=== PATIENT | female | born 1945 | race Caucasian/White ===

== ENCOUNTER 2019-06-22 11:00 | Inpatient (IN) | payer OTHER ==
[~2019-06-22] VITALS: Ht 149.9 cm; Wt 115.7 kg
[~2019-06-22 11:00] MED LIST: ACTONEL150 MG PO; ATENOLOL25 MG PO; CALCIUM600 MG PO; EVISTA60 MG PO; FLUOCINONIDE15 GM; GABAPENTIN300 MG PO; KEPPRA500 MG PO; LISINOPRIL40 MG PO; METROCREAM45 GM TOP; MULTI-VITAMIN1 EACH PO; NEXIUM40 MG PO; OXYBUTYNIN CHLO15 MG PO; RETIN-A20 GM; SYNTHROID75 MCG PO; TRILEPTAL300 MG PO; ULTRAM50 MG PO; ZOCOR10 MG PO; ZOLOFT50 MG PO
--- OUTSIDE RECORDS SUMMARY | 2019-06-22 11:03 | XMS REPORT | Summary of Care ---
Author Author [facility] - Health Organization [facility] - Health Address Unknown Phone Unavailable Care Team Providers Care Die Cast Supervisor Name Role Phone Pcp, Patient Does Not Have A PCP Encounter Details Care Team Description Date Type Department Radiology [address] [place] [id number] Arrived 05/01/2019 [facility] Diagnostic Encounter Imaging, [address] [phone] Allergies Not on Filedocumented as of this encounter (statuses as of 05/02/2019) Medications Not on filedocumented as of this encounter (statuses as of 05/02/2019) Active Problems Not on filedocumented as of this encounter (statuses as of 05/02/2019) Social History Date Tobacco Use Types Packs/Day Years Used Never Assessed Sex Assigned at Date Recorded Not on file Industry Job Start Date Occupation Not on file Not on file Not on file Travel End Travel History Travel Start No recent travel history available. documented as of this encounter Last Filed Vital Signs Not on filedocumented in this encounter Plan of Treatment Health Maintenance Due Date Last Done Comments HEPATITIS C (HCV) SCREEN 1944 DTaP,Tdap,and Td Vaccines 1963 (1 - Tdap) MAMMOGRAM 1984 COLONOSCOPY 1994 Zoster Recombinant 1994 Vaccine (SHINGRIX) (1 of 2) Medicare Wellness Visit 2009 Osteoporosis Screening 2009 PNEUMOCOCCAL VACCINES 65+ 2009 (1 of 2 - PCV13) INFLUENZA VACCINE (#1) 2019 documented as of this encounter Procedures Comments Procedure Name Priority Date/Time Associated Diagnosis XR CHEST 2 VW Routine 05/01/2019 Preop examination 11:34 AM CDT documented in this encounter Results * XR CHEST 2 VW (05/01/2019 11:34 AM CDT) Specimen Impressions Performed At No acute cardiopulmonary disease. PACS/VR/DOSE Narrative Performed At * * * * * * * * ORIGINAL REPORT * * * * * * * * PACS/VR/DOSE CHEST 2 VIEWS: HISTORY:Preop TECHNIQUE::PA and lateral views of the chest are obtained. FINDINGS: The lungs are clear. The heart size and mediastinal silhouette are normal. No pleural effusion or pneumothorax is seen. Procedure Note [facility], Radiant Results Inft User - 05/01/2019 11:36 AM CDT * * * * * * * * ORIGINAL REPORT * * * * * * * * CHEST 2 VIEWS: HISTORY:Preop TECHNIQUE:: PA and lateral views of the chest are obtained. FINDINGS: The lungs are clear. The heart size and mediastinal silhouette are normal. No pleural effusion or pneumothorax is seen. IMPRESSION No acute cardiopulmonary disease. Performing Organization Address City/State/Zipcode Phone Number PACS/VR/DOSE documented in this encounter Visit Diagnoses Diagnosis Preop examination Preoperative examination, unspecified documented in this encounter Insurance Type Payer Benefit Subscriber ID Effective Phone Address Plan / Dates Group [facility] [id number] 2009-P [phone] [id number] [facility] [id number] documented as of this encounter
--- OUTSIDE RECORDS SUMMARY | 2019-06-22 11:03 | XMS REPORT ---
Author Author [facility] Address Unknown Phone Unavailable Care Team Providers Care Pest Control Supervisor Name Role Phone Unavailable Unavailable Problems This patient has no known problems. Allergies, Adverse Reactions, Alerts This patient has no known allergies or adverse reactions. Medications This patient has no known medications.
[2019-06-22 12:30] LABS: BASOPHILS # (AUTO) 0.1 (0.0-0.1); BASOPHILS % 0.6 % (0.0-1.0); EOSINOPHILS # (AUTO) 0.3 (0.0-0.4); HEMATOCRIT 42.7 % (34.2-44.1); LYMPHOCYTES # (AUTO) 2.6 (1.0-3.2); LYMPHOCYTES % 26.8 % (18.0-39.1); MEAN CORPUSCULAR HEMOGLOBIN 31.3 pg (28-32); MEAN CORPUSCULAR HGB CONC 32.8 g/dL (31-35); MEAN CORPUSCULAR VOLUME 95.5 fL (81-99); MONOCYTES # (AUTO) 0.7 (0.2-0.8); MONOCYTES % 7.1 % (4.4-11.3); NEUTROPHILS % 62.2 % (38.7-80.0); PLATELET COUNT 272 x10e3/uL (140-360); RED BLOOD COUNT 4.47 x10e6/uL (3.6-5.1); RED CELL DISTRIBUTION WIDTH 12.7 % (11.7-14.4)
[2019-06-22 12:39] LABS: INR 0.96; PARTIAL THROMBOPLASTIN TIME 25.2 seconds (23.8-35.5); PROTHROMBIN TIME 13.3 seconds (11.9-14.5)
--- NOTE | 2019-06-22 12:46 | Diagnostic Imaging Report ---
EXAMINATION: CHEST SINGLE (PORTABLE) INDICATION: Pain. COMPARISON: None FINDINGS: TUBES and LINES: None. LUNGS: Lungs are well inflated. Lungs are clear. There is no evidence of pneumonia or pulmonary edema. PLEURA: No pleural effusion or pneumothorax. HEART AND MEDIASTINUM: The cardiomediastinal silhouette is unremarkable. BONES AND SOFT TISSUES: No acute osseous lesion. Soft tissues are unremarkable. UPPER ABDOMEN: No free air under the diaphragm. IMPRESSION: No acute thoracic abnormality. Signed by: Dr. Dg Gamez M.D. on 06/22/2019 12:43 PM
[2019-06-22 12:49] LABS: ALANINE AMINOTRANSFERASE 16 IU/L (0-55); ALBUMIN 3.7 g/dL (3.5-5.0); ALBUMIN/GLOBULIN RATIO 1.1 (0.8-2.0); ALKALINE PHOSPHATASE 72 IU/L (40-150); ANION GAP 13.4 mmol/L (8-16); BLOOD UREA NITROGEN 8 mg/dL (7-26); BUN/CREATININE RATIO 9 (6-25); CALCIUM 9.7 mg/dL (8.4-10.2); CARBON DIOXIDE 28 mmol/L (22-29); CHLORIDE 99 mmol/L (98-107); CREATINE KINASE 121 IU/L (29-168); CREATININE, SERUM 0.88 mg/dL (0.57-1.11); EST GLOMERULAR FILTRATION RATE > 60 ML/MIN (60-); GLUCOSE 139 mg/dL (74-118); MAGNESIUM 1.5 MG/DL (1.3-2.1); POTASSIUM 3.4 mmol/L (3.5-5.1); SODIUM 137 mmol/L (136-145)
[2019-06-22 12:56] LABS: B-TYPE NATRIURETIC PEPTIDE2 35.4 pg/mL (0-100)
[2019-06-22] MEDS ORDERED: SODIUM CHLORIDE 0.9% 1000ML 1,000 ML IV STA (13:11)
[2019-06-22] MEDS ORDERED: CEFEPIME 2 GM/NS 0.9% 100 ML 100 ML IV ONE (13:15)
[2019-06-22] MEDS ORDERED: VANCOMYCIN 1GM/NS 250 ML 250 ML IV ONE (13:15)
[2019-06-22] MEDS ORDERED: ONDANSETRON HCL INJ 2MG/ML 2ML 2 MG/ML VIAL IV PRN (14:30)
[2019-06-22] MEDS ORDERED: SODIUM CHLORIDE 0.9% 1000ML 1,000 ML IV ONE (14:30)
[2019-06-22] MEDS ORDERED: DOXYCYCLINE HY100 MG PO (15:05)
[2019-06-22] MEDS ORDERED: METFORMIN HCL850 MG PEG (15:05)
[2019-06-22] MEDS ORDERED: PANTOPRAZOLE SO40 MG PO (15:05)
[2019-06-22] MEDS ORDERED: MYRBETRIQ25 MG PO (15:05)
[2019-06-22] MEDS ORDERED: CARVEDILOL3.125 MG PO (15:05)
--- NOTE | 2019-06-22 16:28 | NUR ---
Recvd patient from ER. AAOx3. able to ambulate to restroom. resp even and unlabored, no distress noted, assisted her to bed, On Head to toe assessment redness on the right calf, multiple red spots on right leg , denies any pain or SOB, Call light in reach, Daughter at bed side.
[2019-06-22 16:32] VITALS: BP 150/77
[2019-06-22] MEDS ORDERED: INFLUENZA VIRUS VAC SPLIT INJ 0.5 ML SYR IM SCH (17:03)
[2019-06-22 17:05] VITALS: BP 150/77
[2019-06-22 20:00] VITALS: BP 138/71
[2019-06-22 21:17] VITALS: BP 138/71
[2019-06-23] VITALS (9 sets, daily range): BP systolic 112–153; BP diastolic 59–94
[2019-06-23] MEDS: CEFEPIME 2 GM/NS 0.9% 100 ML 100 ML IV SCH ×2 (01:35→12:10)
[2019-06-23 05:35] LABS: BASOPHILS # (AUTO) 0.1 (0.0-0.1); BASOPHILS % 0.8 % (0.0-1.0); EOSINOPHILS # (AUTO) 0.3 (0.0-0.4); EOSINOPHILS % 3.8 % (0.0-6.0); HEMATOCRIT 39.2 % (34.2-44.1); HEMOGLOBIN 12.4 g/dL (12.0-16.0); LYMPHOCYTES # (AUTO) 2.4 (1.0-3.2); MEAN CORPUSCULAR HEMOGLOBIN 30.5 pg (28-32); MEAN CORPUSCULAR HGB CONC 31.6 g/dL (31-35); MEAN CORPUSCULAR VOLUME 96.6 fL (81-99); MONOCYTES # (AUTO) 0.7 (0.2-0.8); MONOCYTES % 9.1 % (4.4-11.3); NEUTROPHILS # (AUTO) 4.5 (2.1-6.9); PLATELET COUNT 264 x10e3/uL (140-360); RED BLOOD COUNT 4.06 x10e6/uL (3.6-5.1); RED CELL DISTRIBUTION WIDTH 12.9 % (11.7-14.4)
[2019-06-23 06:07] LABS: ALANINE AMINOTRANSFERASE 15 IU/L (0-55); ALBUMIN 3.2 g/dL (3.5-5.0); ALBUMIN/GLOBULIN RATIO 1.1 (0.8-2.0); ALKALINE PHOSPHATASE 60 IU/L (40-150); ANION GAP 12.9 mmol/L (8-16); BLOOD UREA NITROGEN 7 mg/dL (7-26); BUN/CREATININE RATIO 9 (6-25); CALCIUM 8.9 mg/dL (8.4-10.2); CARBON DIOXIDE 25 mmol/L (22-29); CHLORIDE 105 mmol/L (98-107); CREATININE, SERUM 0.76 mg/dL (0.57-1.11); EST GLOMERULAR FILTRATION RATE > 60 ML/MIN (60-); GLUCOSE 128 mg/dL (74-118); POTASSIUM 3.9 mmol/L (3.5-5.1); SODIUM 139 mmol/L (136-145)
[2019-06-23] MEDS ORDERED: HYDRALAZINE HCL 20 MG/ML VIAL IV PRN (06:30)
[2019-06-23] MEDS ORDERED: ACETAMINOPHEN 325 MG TAB PO PRN (06:30)
[2019-06-23] MEDS ORDERED: TRAMADOL HCL 50 MG TAB PO PRN (06:30)
[2019-06-23] MEDS ORDERED: ACETAMINOPHEN/CODEINE 300MG - 30MG TAB PO PRN (06:30)
[2019-06-23] MEDS ORDERED: ONDANSETRON HCL INJ 2MG/ML 2ML 2 MG/ML VIAL IV PRN (06:30)
[2019-06-23] MEDS ORDERED: DEXTROSE 50% SYRINGE 50 ML IV PRN (06:30)
[2019-06-23] MEDS ORDERED: MELATONIN 5 MG TABLET PO PRN (06:30)
[2019-06-23] MEDS: LEVOTHYROXINE SODIUM 100 MCG TAB PO SCH (06:47)
[2019-06-23] MEDS: INSULIN LISPRO 100 UNIT/1 ML 3ML VIAL SQ SCH ×4 (07:30→21:00)
--- NOTE | 2019-06-23 07:56 | NUR ---
patient up in recliner, denies any pain or distress, call light in reach, daughter at bed side
[2019-06-23] MEDS: MYRBETRIQ 25MG PO SCH (08:11)
[2019-06-23] MEDS: MULTIVITAMINS/MINERALS TAB PO SCH (08:11)
[2019-06-23] MEDS: CARVEDILOL 3.125 MG TAB PO SCH ×2 (08:11→17:03)
[2019-06-23] MEDS: LEVETIRACETAM 500 MG TAB PO SCH ×2 (08:11→17:03)
[2019-06-23] MEDS: SERTRALINE HCL 50 MG TAB PO SCH (08:12)
[2019-06-23] MEDS: PANTOPRAZOLE SOD 40 MG TABEC PO SCH (08:12)
[2019-06-23] MEDS: OYST-CAL-D 500MG TABLET PO SCH (08:12)
[2019-06-23] MEDS: GABAPENTIN 300 MG CAP PO SCH ×2 (08:12→17:03)
[2019-06-23] MEDS ORDERED: NON-FORMULARY MEDICATION (Mirabegron (Myrbetriq) 25 MG) PO SCH (09:00)
[2019-06-23] MEDS ORDERED: LEVOTHYROXINE SODIUM 75 MCG TAB PO SCH (09:00)
[2019-06-23] MEDS ORDERED: SIMVASTATIN 10 MG PO SCH (09:00)
[2019-06-23] MEDS: OXCARBAZEPINE 300 MG TAB PO SCH ×2 (09:00→17:00)
[2019-06-23] MEDS: RALOXIFENE HCL 60 MG TAB PO SCH (12:12)
--- NOTE | 2019-06-23 12:36 | NUR ---
Dr Raymundo had rounds stated keep the patient On Contact isolation for Shingles
--- NOTE | 2019-06-23 13:44 | Consultation ---
DATE OF CONSULTATION: REASON FOR CONSULTATION: Cellulitis of the leg. HISTORY OF PRESENT ILLNESS: This patient, who is a very pleasant 73-year-old white female, history of obesity, history of depression, history of GERD, history of neuropathy, history of hypothyroidism, history of diabetes mellitus, history of kidney problems according to her, comes in with redness and swelling of her right leg, started with pain, then there was redness and swelling, then rash. Redness and swelling were behind the knee. The rash was down on the leg. The patient came to emergency room, where she was admitted and started on antibiotic. The patient has history of herpes zoster before and she took the vaccine 2 years ago, but she does not know which one. PAST MEDICAL HISTORY: Otherwise, as above. She has history of hypertension, diabetes mellitus, seizure disorder, hypothyroidism, GERD, osteoporosis, hyperlipidemia, depression, asthma, rosacea, and hyperlipidemia. PAST SURGICAL HISTORY: Cataract surgery, total knee replacement, and bilateral carpal tunnel syndrome. FAMILY HISTORY: Diabetes mellitus and cancer. Diabetes with a father side, cancer on mother's side. SOCIAL HISTORY: There is no smoking, drug abuse, or alcohol abuse. She drinks occasionally. ALLERGIES: ERYTHROMYCIN AND PENICILLIN, BUT SHE DID WELL WITH CEPHALOSPORIN. MEDICATIONS: She is currently on cefepime, vancomycin, normal saline, Tylenol, Coreg, Neurontin, insulin, hydralazine, Lipitor, Keppra, and Synthroid. REVIEW OF SYSTEMS: HEENT: There is no headache, visual changes, or hearing changes. GI: There is no nausea, no vomiting, no diarrhea. : There is no urgency or frequency. SKIN: There are no other rashes except for what mentioned on the leg. All other systems within normal limit. LABORATORY DATA: White count 7.99 and hemoglobin 12. Her sodium 139, potassium 3.9, and creatinine 0.76. Lactic acid was 2. PHYSICAL EXAMINATION: GENERAL: She is currently alert and oriented. Does not seem to be in acute distress. VITAL SIGNS: Stable, currently afebrile. HEENT: Normocephalic. Not icteric. NECK: Supple. CHEST: Clear bilateral. HEART: S1 and S2. No S3, S4, or rub. ABDOMEN: Obese. Bowel sounds present. No tenderness. No hepatosplenomegaly. EXTREMITIES: She did have erythema and edema. There is a patch about 5 x 7 cm of redness with edema. No erythema on the back of her leg. There is also rash, which seems small vesicular lesions on the anterior aspect of the leg from the ankle all the way to the knee. There is some behind the knee. IMPRESSION: 1. I think the patient have herpes zoster. 2. I think she has superimposed cellulitis, probably strep. 3. Obesity. 4. History of hypertension. 5. History of diabetes mellitus. 6. History of seizure disorder. 7. History of gastroesophageal reflux disease. RECOMMENDATIONS: We will put the patient on contact isolation. We will start on acyclovir 800 mg p.o. 5 times a day for 7 days. We will start on IV clindamycin. Recheck CBC. Recheck chem panel. Gentle hydration. The patient would benefit from Shingrix if she did not take it recently. We will try to get the old record. Discussed with the patient. Discussed her daughter. Answered all their question. We will follow. MD CONSUELO Reddy/CLARK /[id number]
[2019-06-23] MEDS: ACYCLOVIR 200 MG CAP PO SCH ×3 (14:24→21:27)
[2019-06-23] MEDS: CLINDAMYCIN 600MG / 50ML 50 ML IV SCH ×2 (17:03→23:50)
[2019-06-23 19:49] LABS: BILIRUBIN,URINE NEGATIVE (NEGATIVE); CLARITY,URINE SL CLOUDY (CLEAR); COLOR,URINE YELLOW (YELLOW); KETONES,URINE NEGATIVE (NEGATIVE); LEUKOCYTE ESTERASE ,URINE NEGATIVE (NEGATIVE); NITRITE,URINE NEGATIVE (NEGATIVE); PROTEIN,URINE DIPSTICK NEGATIVE (NEGATIVE); URINE UROBILINOGEN 0.2 mg/dL (0.2 - 1)
[2019-06-23 19:57] LABS: AMORPHOUS SEDIMENT,URINE MODERATE (FEW); BACTERIA,URINE FEW /HPF; EPITHELIAL CELLS,URINE FEW /LPF; MUCUS,URINE FEW (RARE); WBC,URINE (MAN) 0-5 /HPF (0-5)
[2019-06-23] MEDS: OXYBUTYNIN CHLORIDE 30 MG PO SCH (21:00)
[2019-06-23] MEDS: SIMVASTATIN 20 MG TAB PO SCH (21:27)
[2019-06-23] MEDS ORDERED: ADVAIR 250-501 EACH (22:48)
[2019-06-24] VITALS (8 sets, daily range): BP systolic 134–165; BP diastolic 59–65
[2019-06-24 05:56] LABS: BASOPHILS # (AUTO) 0.1 (0.0-0.1); EOSINOPHILS # (AUTO) 0.4 (0.0-0.4); EOSINOPHILS % 6.3 % (0.0-6.0); HEMATOCRIT 36.8 % (34.2-44.1); HEMOGLOBIN 11.8 g/dL (12.0-16.0); LYMPHOCYTES # (AUTO) 2.5 (1.0-3.2); MEAN CORPUSCULAR HEMOGLOBIN 30.6 pg (28-32); MEAN CORPUSCULAR HGB CONC 32.1 g/dL (31-35); MEAN CORPUSCULAR VOLUME 95.6 fL (81-99); MONOCYTES # (AUTO) 0.6 (0.2-0.8); MONOCYTES % 9.1 % (4.4-11.3); NEUTROPHILS # (AUTO) 2.7 (2.1-6.9); NEUTROPHILS % 43.3 % (38.7-80.0); PLATELET COUNT 236 x10e3/uL (140-360); RED BLOOD COUNT 3.85 x10e6/uL (3.6-5.1)
[2019-06-24 06:11] LABS: ANION GAP 12.5 mmol/L (8-16); BLOOD UREA NITROGEN 9 mg/dL (7-26); BUN/CREATININE RATIO 12 (6-25); CALCIUM 8.9 mg/dL (8.4-10.2); CARBON DIOXIDE 24 mmol/L (22-29); CHLORIDE 107 mmol/L (98-107); CHOL/HDL RATIO 3.5 (3.0-3.6); CHOLESTEROL 114 MD/DL (0-199); CREATININE, SERUM 0.78 mg/dL (0.57-1.11); EST GLOMERULAR FILTRATION RATE > 60 ML/MIN (60-); GLUCOSE 140 mg/dL (74-118); HDL CHOLESTEROL 33 MG/DL (40-60); LDL CHOLESTEROL 61 MG/DL (60-130); POTASSIUM 3.5 mmol/L (3.5-5.1); SODIUM 140 mmol/L (136-145); TRIGLYCERIDES 99 MG/DL (0-149)
[2019-06-24] MEDS: CLINDAMYCIN 600MG / 50ML 50 ML IV SCH ×3 (06:14→17:49)
[2019-06-24] MEDS: ACYCLOVIR 200 MG CAP PO SCH ×5 (06:14→21:12)
[2019-06-24] MEDS: LEVOTHYROXINE SODIUM 100 MCG TAB PO SCH (06:14)
[2019-06-24 06:35] LABS: THYROID STIMULATING HORMONE 1.247 uIU/mL (0.350-4.940)
--- NOTE | 2019-06-24 07:00 | NUR ---
BEDSIDE SHIFT REPORT RECEIVED FROM THE HANDKERCHIEF CUTTER RN. EDUCATED PT ABOUT FALL PRECAUTIONS. BED IS LOW AND LOCKED. SIDE RAILS X2. CALL LIGHT WITH IN EASY REACH. INSTRUCTED PT TO USE CALL LIGHT FOR ANY NEEDS. PT VERBALIZED UNDERSTANDING. FAMILY AT BEDSIDE. PT DENIES NEEDS AT THIS TIME.
[2019-06-24] MEDS: INSULIN LISPRO 100 UNIT/1 ML 3ML VIAL SQ SCH ×4 (08:00→21:15)
[2019-06-24] MEDS: SERTRALINE HCL 50 MG TAB PO SCH (08:32)
[2019-06-24] MEDS: MULTIVITAMINS/MINERALS TAB PO SCH (08:34)
[2019-06-24] MEDS: RALOXIFENE HCL 60 MG TAB PO SCH (08:34)
[2019-06-24] MEDS: LEVETIRACETAM 500 MG TAB PO SCH ×2 (08:34→17:49)
[2019-06-24] MEDS: GABAPENTIN 300 MG CAP PO SCH ×2 (08:34→17:49)
[2019-06-24] MEDS: OYST-CAL-D 500MG TABLET PO SCH (08:34)
[2019-06-24] MEDS: PANTOPRAZOLE SOD 40 MG TABEC PO SCH (08:35)
[2019-06-24] MEDS: CARVEDILOL 3.125 MG TAB PO SCH ×2 (08:36→17:49)
[2019-06-24] MEDS: MYRBETRIQ 25MG PO SCH (08:43)
[2019-06-24] MEDS: OXCARBAZEPINE 300 MG TAB PO SCH ×2 (08:43→17:00)
[2019-06-24] MEDS ORDERED: ONDANSETRON HCL 4 MG ORAL DISINTEGRATING TAB PO PRN (08:45)
--- NOTE | 2019-06-24 09:00 | NUR ---
PT REQUESTED ADVAIR 250 HOME MED. INFORMED THE SAME TO SINDY PERZE. NEW ORDER RECEIVED.
--- NOTE | 2019-06-24 16:50 | NUR ---
PT REFUSED OXCARBAZEPINE AND INFORMED SHE DOESN'T TAKE ANYMORE.
--- NOTE | 2019-06-24 18:00 | NUR ---
RAC 20 G IV REMOVED DUE TO LEAKING. TIP INTACT. DRESSING APPLIED. NEW IV STARTED LFA 20 G. PT DENIES NEEDS AT THIS TIME. DAUGHTER AT BEDSIDE.
--- NOTE | 2019-06-24 19:00 | NUR ---
BEDSIDE SHIFT REPORT GIVEN TO THE MICROARRAY ANALYST RN. PT DENIED FURTHER NEEDS. PT FAMILY AT BEDSIDE.
[2019-06-24] MEDS: OXYBUTYNIN CHLORIDE 30 MG PO SCH (21:00)
[2019-06-24] MEDS: SIMVASTATIN 20 MG TAB PO SCH (21:12)
[2019-06-25 00:15] VITALS: BP 125/72
[2019-06-25] MEDS: CLINDAMYCIN 600MG / 50ML 50 ML IV SCH ×2 (00:29→05:08)
[2019-06-25 05:03] VITALS: BP 123/66
[2019-06-25] MEDS: ACYCLOVIR 200 MG CAP PO SCH ×2 (05:08→08:26)
[2019-06-25] MEDS: LEVOTHYROXINE SODIUM 100 MCG TAB PO SCH (05:08)
[2019-06-25] MEDS: SALMETEROL/FLUTICASONE 250/50 INH SCH ×2 (07:00→09:00)
--- NOTE | 2019-06-25 07:00 | NUR ---
BEDSIDE SHIFT REPORT RECEIVED FROM THE BOX PRESS OPERATOR RN. EDUCATED PT ABOUT FALL PRECAUTIONS. FAMILY AT BEDSIDE. BED IS LOW AND LOCKED. SIDE RAILS X2. BED ALARM IS ON. CALL LIGHT WITH IN EASY REACH. INSTRUCTED PT TO USE CALL LIGHT FOR ANY NEEDS. PT VERBALIZED UNDERSTANDING. PT DENIES NEEDS AT THIS TIME.
[2019-06-25 07:25] VITALS: BP 147/53
[2019-06-25 07:42] VITALS: BP 147/53
[2019-06-25] MEDS: OYST-CAL-D 500MG TABLET PO SCH (08:24)
[2019-06-25] MEDS: GABAPENTIN 300 MG CAP PO SCH (08:24)
[2019-06-25] MEDS: LEVETIRACETAM 500 MG TAB PO SCH (08:25)
[2019-06-25] MEDS: RALOXIFENE HCL 60 MG TAB PO SCH (08:25)
[2019-06-25] MEDS: PANTOPRAZOLE SOD 40 MG TABEC PO SCH (08:25)
[2019-06-25] MEDS: MULTIVITAMINS/MINERALS TAB PO SCH (08:25)
[2019-06-25] MEDS: OXCARBAZEPINE 300 MG TAB PO SCH (08:26)
[2019-06-25] MEDS: SERTRALINE HCL 50 MG TAB PO SCH (08:26)
[2019-06-25] MEDS: CARVEDILOL 3.125 MG TAB PO SCH (08:27)
[2019-06-25] MEDS: MYRBETRIQ 25MG PO SCH (08:28)
[2019-06-25] MEDS: INSULIN LISPRO 100 UNIT/1 ML 3ML VIAL SQ SCH (08:30)
[2019-06-25] MEDS ORDERED: ACYCLOVIR200 MG PO (09:52)
[2019-06-25] MEDS ORDERED: CLEOCIN HCL150 MG PO (09:52)
--- NOTE | 2019-06-25 10:35 | NUR ---
PT DISCHARGED HOME SAFELY WITH HER DAUGHTER.PT ESCORTED VIA WHEEL CHAIR TO THE FRONT ENTRANCE. IV REMOVED. TIP INTACT. DRESSING APPLIED. RX GIVEN. PT DENIED FURTHER NEEDS.
--- NOTE | 2019-06-26 00:16 | Discharge Summary ---
Ms. Becker is a 73-year-old female, who admitted with complaints right lower extremity redness/rash that began 2 days ago. She denied fever and drainage, admitted to itching and Zoloft was recently increased, but no other med changes were noted. She denied gardening and recent antibiotic use. PAST MEDICAL HISTORY: Includes hypertension, type 2 diabetes mellitus, seizures, hypothyroidism, gastroesophageal reflux disease, osteoporosis, overactive bladder, hyperlipidemia, depression, asthma, rosacea, and lymphedema. PAST SURGICAL HISTORY: Bilateral cataract surgery, bilateral lower blepharoplasty, bilateral total knee replacements, left hand carpal tunnel release. FAMILY HISTORY: Diabetes in her father and cancer in her mother, CVA in mother. SOCIAL HISTORY: Occasional use of alcohol. She lives alone in a house. Her daughter lives nearby and checks on her frequently. ALLERGIES: TO ERYTHROMYCIN BASE, ASPIRIN, AND PENICILLINS. ADMITTING DIAGNOSES: 1. Right lower extremity cellulitis with severe sepsis. 2. Hypertension. 3. Hyperlipidemia. 4. History of seizures. 5. Hypothyroidism. 6. Osteoporosis. 7. Depression. 8. Overactive bladder. DISCHARGE DIAGNOSES: 1. Right lower extremity cellulitis with severe sepsis, superimposed on shingles. 2. Hypertension. 3. History of seizures. 4. Hypothyroidism. On June 22, white blood cell count was 9.67, yesterday it was 6.17, hemoglobin and hematocrit were stable as were platelets. On admission, potassium mildly depressed at 3.4. Lactic acid was 2.1, this improved to 1.0. B-type natriuretic peptide 35.4. On June 24, the potassium was 3.5, BUN 9, creatinine 0.78, GFR greater than 60. TSH 1.247. Hemoglobin A1c 6.5. Urine culture collected on June 22 showed no growth after 36 to 48 hours. Blood cultures x2 were collected on June 22, no growth after 48 hours. Chest x-ray done on the showed no acute thoracic abnormality. The patient will be discharged home today on clindamycin and acyclovir. Acyclovir 800 mg p.o. 5 times a day and Cleocin (clindamycin) 300 mg p.o. every 8 hours x3 days. The patient remain on an ADA diet. Activity level as tolerated. No specific date to follow up with Dr. Raymundo. Follow up as directed. Follow up with PCP in 1 to 2 weeks. Dictated by Robin W Marco Antonio, RETAIL BAKERY MANAGER MD QUAN Story/CLARK /[id number]
== END 2019-06-25 10:43 | disposition home or self-care (01) | DRG 872 ==
LOC: ER 11:00 → ERHOLD 14:42 → MED/SURG2 16:04
PROVIDERS: ADMIT Internal Medicine; ATTEND Internal Medicine
DX: A41.9 Sepsis, unspecified organism (principal); L03.115 Cellulitis of right lower limb; Z68.43 Body mass index [BMI] 50.0-59.9, adult; L50.1 Idiopathic urticaria; Z82.49 Family history of ischemic heart disease and other diseases of the circulatory system; Z88.6 Allergy status to analgesic agent; Z88.0 Allergy status to penicillin; Z88.8 Allergy status to other drugs, medicaments and biological substances; B02.9 Zoster without complications; B95.5 Unspecified streptococcus as the cause of diseases classified elsewhere; E66.01 Morbid (severe) obesity due to excess calories; I10 Essential (primary) hypertension; G40.901 Epilepsy, unspecified, not intractable, with status epilepticus; K21.9 Gastro-esophageal reflux disease without esophagitis; E03.9 Hypothyroidism, unspecified; F32.9 Major depressive disorder, single episode, unspecified; R65.20 Severe sepsis without septic shock; M81.0 Age-related osteoporosis without current pathological fracture; N32.81 Overactive bladder; E11.9 Type 2 diabetes mellitus without complications; E78.5 Hyperlipidemia, unspecified; Z83.3 Family history of diabetes mellitus; Z80.9 Family history of malignant neoplasm, unspecified; Z82.3 Family history of stroke; Z79.84 Long term (current) use of oral hypoglycemic drugs
CPT/HCPCS: 36415; 71045; 80048; 80053; 80061; 81001; 82550; 82553; 82948; 83036; 83605; 83735; 83880; 84443; 84484; 85025; 85610; 85730; 87040; 87086; 93005; 93971; 94664; 99284; J3370; J7030

== ENCOUNTER 2021-08-01 11:44 | Emergency (ER) | payer OTHER ==
[~2021-08-01] VITALS: Ht 149.9 cm; Wt 115.7 kg
[~2021-08-01 11:44] MED LIST changes: +ACYCLOVIR200 MG PO; +ADVAIR 250-501 EACH; +CARVEDILOL3.125 MG PO; +CLEOCIN HCL150 MG PO; +DOXYCYCLINE HY100 MG PO; +METFORMIN HCL850 MG PEG; +MYRBETRIQ25 MG PO; +PANTOPRAZOLE SO40 MG PO
[2021-08-01] MEDS ORDERED: LIDOCAINE 4% PATCH TP NR (12:15)
[2021-08-01] MEDS ORDERED: TRAMADOL HCL 50 MG TAB PO NR (12:15)
== END 2021-08-01 12:37 | disposition home or self-care (01) ==
LOC: ER 12:27
DX: M79.605 Pain in left leg (principal); Z96.651 Presence of right artificial knee joint
CPT/HCPCS: 99282

== ENCOUNTER 2024-09-18 17:38 | Emergency (ER) | payer OTHER ==
[~2024-09-18] VITALS: Ht 149.9 cm; Wt 115.7 kg
[2024-09-18 17:46] VITALS: PULSE 102; RESP 20; TEMP 99; O2SAT 100
[2024-09-18] MEDS ORDERED: AZITHROMYCIN250 MG PO (18:00)
[2024-09-18] MEDS ORDERED: VENTOLIN HFA18 GM INH (18:01)
== END 2024-09-18 18:07 | disposition home or self-care (01) ==
LOC: ER 18:00
DX: R05.9 Cough, unspecified (principal); U07.1 COVID-19; J02.0 Streptococcal pharyngitis; I10 Essential (primary) hypertension; E11.40 Type 2 diabetes mellitus with diabetic neuropathy, unspecified; G40.909 Epilepsy, unspecified, not intractable, without status epilepticus; M81.0 Age-related osteoporosis without current pathological fracture
CPT/HCPCS: 99282